=== PATIENT | female | born 1965 | race Caucasian/White ===

== ENCOUNTER 2025-06-20 09:02 | Day surgery (SDC) | payer MEDICARE ==
[2025-06-19 10:24] VITALS: BMI 31.1
[2025-06-20] MEDS ORDERED: Lidocaine 1% w/Epinephrine 1:200K 30 ML VIAL ONE (09:29)
[2025-06-20] MEDS ORDERED: Bacitracin 1 PK ONE (09:29)
[2025-06-20 10:42] LABS: Hematocrit 39.1 % (34.9-44.5)
== END 2025-06-20 13:10 | disposition home or self-care (01) ==
LOC: CSHSDC 09:02
PROVIDERS: ATTEND Specialist
PROC: 0HB1XZZ Excision of Face Skin, External Approach (ICD-10-PCS; principal; 2025-06-20)
DX: L72.11 Pilar cyst (principal); L72.3 Sebaceous cyst; I10 Essential (primary) hypertension; H65.02 Acute serous otitis media, left ear; H69.93 Unspecified Eustachian tube disorder, bilateral; H90.6 Mixed conductive and sensorineural hearing loss, bilateral; F17.200 Nicotine dependence, unspecified, uncomplicated; Z90.89 Acquired absence of other organs; Z88.5 Allergy status to narcotic agent
CPT/HCPCS: 11441; 12051; 85014; J3010; 36415; 88304